=== PATIENT | female | born 1985 | race Caucasian/White ===

== ENCOUNTER 2018-07-10 21:06 | Emergency (ER) | payer OTHER ==
[~2018-07-10] VITALS: Ht 165.1 cm; Wt 117.9 kg
[~2018-07-10 21:06] MED LIST: NAPR-54 PO; SULF1TAB12 PO
[2018-07-10 21:33] VITALS: BP 142/63
--- NOTE | 2018-07-10 21:39 | NUR ---
ECG COMPLETED IN TRIAGE.
--- NOTE | 2018-07-10 21:54 | NUR ---
PT AMBULATED TO BED 03.
[2018-07-10 22:13] LABS: BASOPHILS % (AUTO) 0.5 % (0.0-2.0); EOSINOPHILS % (AUTO) 0.3 % (0.0-4.0); HEMATOCRIT 39.5 % (36-48); HEMOGLOBIN 13.3 g/dL (12.0-16.0); LYMPHOCYTES # (AUTO) 1.7 K/uL (2.5-16.5); LYMPHOCYTES % (AUTO) 23.4 % (20.5-51.1); MEAN CORPUSCULAR HEMOGLOBIN 29 pg (27-31); MEAN CORPUSCULAR HGB CONC 34 g/dL (33-37); MEAN CORPUSCULAR VOLUME 86.2 fL (80-94); MONOCYTES # (AUTO) 0.3 K/uL (0.8-1.0); MONOCYTES % (AUTO) 4.2 % (1.7-9.3); NEUTROPHILS # (AUTO) 5.1 K/uL (1.8-7.7); NEUTROPHILS % (AUTO) 71.6 % (42.2-75.2); PLATELET COUNT (AUTO) 173 K/uL (140-450); RED BLOOD CELL COUNT(AUTO) 4.58 MIL/uL (4.20-5.40); RED CELL DISTRIBUTION WIDTH 13.5 % (11.6-13.7); WHITE BLOOD COUNT (AUTO) 7.2 K/uL (4.8-10.8)
[2018-07-10 22:23] LABS: ANION GAP 13.4 (8-16); CARBON DIOXIDE 26.2 mmol/L (21-32); CREATININE 0.7 mg/dL (0.6-1.3); POTASSIUM 3.6 mmol/L (3.5-5.1)
--- NOTE | 2018-07-10 22:25 | NUR ---
PT TO ED WITH C/O INTERMITTENT CP X 1 WEEK WITH SOB. NO OBVIOUS DISTRESS NOTED. LUNG SOUNDS CLEAR TO ASCULTATION. PT DENIES CP AT THIS TIME. EKG PERFORMED IN TRIAGE. PT PLACED INTO BED, PENDING MD PEDROZA.
[2018-07-10 22:31] LABS: ALBUMIN 3.6 g/dL (3.4-5.0); TOTAL BILIRUBIN 0.2 mg/dL (0.0-1.0)
--- NOTE | 2018-07-11 00:10 | NUR ---
PT RESTING, NO DISTRESS NOTED. ALL QUESTIONS ANSWERED.
[2018-07-11 02:25] VITALS: BP 135/86
== END 2018-07-11 02:24 | disposition home or self-care (01) ==
LOC: MED 21:06
DX: R07.89 Other chest pain (principal); Z88.6 Allergy status to analgesic agent; Z88.5 Allergy status to narcotic agent; Z79.1 Long term (current) use of non-steroidal anti-inflammatories (NSAID); Z79.2 Long term (current) use of antibiotics
CPT/HCPCS: 36415; 71045; 80053; 84484; 85025; 87086; 93005; 99284

== ENCOUNTER 2020-12-11 22:15 | Emergency (ER) | payer OTHER ==
[~2020-12-11] VITALS: Ht 165.1 cm; Wt 113.4 kg
[~2020-12-11 22:15] MED LIST changes: +SULF-954 PO; -SULF1TAB12 PO
[2020-12-11 22:20] VITALS: BP 127/77
--- NOTE | 2020-12-11 22:23 | NUR ---
TO LOBBY A/W BED AMBULATORY
--- NOTE | 2020-12-12 00:37 | NUR ---
PT TAKEN TO BED 5
--- NOTE | 2020-12-12 00:40 | NUR ---
Dr. Escalera examining patient.
[2020-12-12] MEDS ORDERED: KETOROLAC 60 MG/2 ML VIAL IM ONE (00:45)
[2020-12-12] MEDS ORDERED: ONDANSETRON 4 MG ODT PO ONE (00:45)
[2020-12-12] MEDS ORDERED: ONDA8TAB87 PO (00:52)
[2020-12-12] MEDS ORDERED: LOPE-289 PO (00:52)
[2020-12-12] MEDS ORDERED: IBUP-2213 PO (00:52)
--- NOTE | 2020-12-12 01:26 | NUR ---
Patient discharged with v/s stable. Written and verbal after care instructions given and explained. Patient alert, oriented and verbalized understanding of instructions. Ambulatory with steady gait. All questions addressed prior to discharge. ID band removed. Patient advised to follow up with PMD. Rx of ibuprofen, loperamide, zofran given. Patient educated on indication of medication including possible reaction and side effects. Opportunity to ask questions provided and answered.
[2020-12-12 01:30] VITALS: BP 94/53
== END 2020-12-12 01:26 | disposition home or self-care (01) ==
LOC: MED 22:15
DX: R19.7 Diarrhea, unspecified (principal); R10.13 Epigastric pain; R11.0 Nausea; Z88.6 Allergy status to analgesic agent; Z88.5 Allergy status to narcotic agent
CPT/HCPCS: 71045; 93005; 96372; 99283; J1885; Q0162

== ENCOUNTER 2023-06-23 11:00 | Emergency (ER) | payer OTHER ==
[~2023-06-23] VITALS: Ht 165.1 cm; Wt 119.7 kg
[~2023-06-23 11:00] MED LIST changes: +IBUP-2213 PO; +LOPE-289 PO; +ONDA8TAB87 PO
[2023-06-23 11:10] VITALS: BP 124/70; PULSE 100; RESP 20; TEMP 97.3; O2SAT 100
== END 2023-06-23 11:50 | disposition home or self-care (01) ==
LOC: MED 11:00
DX: S29.011A Strain of muscle and tendon of front wall of thorax, initial encounter (principal); Z79.899 Other long term (current) drug therapy; Z88.5 Allergy status to narcotic agent; Z88.8 Allergy status to other drugs, medicaments and biological substances; X58.XXXA Exposure to other specified factors, initial encounter; Y92.89 Other specified places as the place of occurrence of the external cause; Y93.89 Activity, other specified; Y99.8 Other external cause status
CPT/HCPCS: 93005; 99281; 99283